=== PATIENT | female | born 1985 | race Caucasian/White ===

== ENCOUNTER 2017-04-10 11:32 | Emergency (ER) | payer OTHER ==
[2017-04-10 11:35] VITALS: BP 138/83; PULSE 81; TEMP 98; BMI 51.3
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
[2017-04-10] MEDS ORDERED: CYCLOBENZAPRINE HCL 10 MG TABLET (FP) PO ONE (12:03)
[2017-04-10] MEDS ORDERED: KETOROLAC TROMETHAMINE 30 MG/1 ML VIAL IM ONE (12:03)
[2017-04-10] MEDS ORDERED: CYCLOBENZAPRINE HCL 10 MG TABLET (FP) ONE (12:07)
[2017-04-10] MEDS ORDERED: KETOROLAC TROMETHAMINE 30 MG/1 ML VIAL ONE (12:07)
== END 2017-04-10 12:49 | disposition home or self-care (01) ==
LOC: JERFT 11:32
PROC: 3E0233Z Introduction of Anti-inflammatory into Muscle, Percutaneous Approach (ICD-10-PCS; principal; 2017-04-10)
DX: M54.2 Cervicalgia (principal); M54.5 Low back pain; V49.59XA Passenger injured in collision with other motor vehicles in traffic accident, initial encounter; Y92.488 Other paved roadways as the place of occurrence of the external cause; Y93.89 Activity, other specified; Y99.8 Other external cause status
CPT/HCPCS: 72050-TC; 72100-TC; 84703; 99281-25

== ENCOUNTER 2018-05-30 08:47 | Emergency (ER) | payer OTHER ==
[2018-05-30 09:05] VITALS: BP 137/81; PULSE 85; BMI 50.8
[2018-05-30] MEDS ORDERED: ACETAMINOPHEN 325 MG TABLET (FP) PO ONE (09:13)
[2018-05-30] MEDS ORDERED: ACETAMINOPHEN 325 MG TABLET (FP) ONE ×2 (09:16)
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
== END 2018-05-30 11:29 | disposition home or self-care (01) ==
LOC: JERFT 08:47
PROC: 2W3QX1Z Immobilization of Right Lower Leg using Splint (ICD-10-PCS; principal; 2018-05-30)
DX: S92.124A Nondisplaced fracture of body of right talus, initial encounter for closed fracture (principal); S00.81XA Abrasion of other part of head, initial encounter; S60.812A Abrasion of left wrist, initial encounter; V43.52XA Car driver injured in collision with other type car in traffic accident, initial encounter; W22.11XA Striking against or struck by driver side automobile airbag, initial encounter; Y92.414 Local residential or business street as the place of occurrence of the external cause; Y93.89 Activity, other specified; Y99.8 Other external cause status
CPT/HCPCS: 70450-TC; 73610-TC-RT-FY; 73630-TC-RT-FY; 84703; 99282-25